=== PATIENT | male | born 1995 | race Asian ===

== ENCOUNTER 2018-09-25 22:32 | Emergency (ER) | payer OTHER, SELFPAY ==
[2018-09-25 22:39] VITALS: BP 127/77; PULSE 68; RESP 14; TEMP 37.2; O2SAT 100
--- NOTE | 2018-09-25 22:41 | DI.RAD.S_ITS ---
PROCEDURE: XR FOOT LT MIN 3V INDICATIONS: slip/fall, left lateral foot pain TECHNIQUE: 3 views of the foot were acquired. COMPARISON: None. FINDINGS: Bones: No fractures or dislocations. No suspicious bony lesions. Soft tissues: No tibiotalar joint effusion. Achilles tendon appears normal. IMPRESSION: Normal for age, source of current lateral pain symptoms is not seen. Dictated by: Reynaldo Mckeon M.D. on 09/26/2018 at 8:34 Approved by: Reynaldo Mckeon M.D. on 09/26/2018 at 8:35
--- NOTE | 2018-09-25 22:41 | DI.RAD.S_ITS ---
PROCEDURE: XR ELBOW LT MIN 3V INDICATIONS: slip/fall, left elbow pain TECHNIQUE: 3 views of the elbow were acquired. COMPARISON: None. FINDINGS: Bones: No fractures or dislocations. No suspicious bony lesions. Soft tissues: No elbow joint effusion. No suspicious soft tissue calcifications. IMPRESSION: Normal for age, source of current left elbow pain symptoms is not seen. Dictated by: Reynaldo Mckeon M.D. on 09/26/2018 at 8:34 Approved by: Reynaldo Mckeon M.D. on 09/26/2018 at 8:34
--- NOTE | 2018-09-25 23:22 | PC.NURSE ---
GLF, slipped on plastic lid, reports impacted lt hip, lt elbow, denies head/neck pain or tenderness, denies LOC, amb ind with steady gait, lt lateral foot pain, rolled it, no swelling/deformity or other visible sign of injurt to either ext, distal cms intact
--- NOTE | 2018-09-25 23:51 | ED_ITS ---
HPI - Extremity Injury (Lower) General Chief Complaint: Extremity Injury, Lower Stated Complaint: LEFT ARM AND ELBOW AND FOOT AND BACK INJURY Time Seen by Provider: 09/25/18 23:38 Source: patient Mode of arrival: ambulatory Limitations: no limitations History of Present Illness HPI Narrative: 22-year-old male here for evaluation of left ankle left hip left elbow pain. He states that earlier today he slipped on a plastic lid that was in the floor of his kitchen and landed on his left side. No loss of conscious. Denies any his head. He is ambulatory. Came in for evaluation of pain in these areas. No intervention for his symptoms prior to arrival Related Data Home Medications Medication Instructions Recorded Confirmed No Known Home Medications 09/25/18 09/25/18 Allergies Allergy/AdvReac Type Severity Reaction Status Date / Time No Known Drug Allergies Allergy Verified 09/25/18 22:40 Review of Systems Constitutional Denies frequent falls and Denies headache(s) ENT Ears, Nose, Mouth, and Throat: Denies vertigo, Denies dizziness and Denies headache(s) Cardiovascular Denies chest pain and Denies dyspnea Respiratory Denies dyspnea Gastrointestinal Gastrointestinal: Denies abdominal pain Musculoskeletal Comments: Left elbow left hip and left ankle pain Integumentary/Breasts Denies lesions and Denies rash Neurologic Denies vertigo, Denies dizziness, Denies frequent falls and Denies headache(s) Hematologic/Lymphatic Comments: Not on anticoagulation [facility] Medical History Healthy adult (Acute) Surgical History No pertinent past surgical history (Acute) Social History lives independently: Yes Exam Initial Vital Signs Initial Vital Signs: Vital Signs Temperature 99.0 F 09/25/18 22:39 Pulse Rate 68 09/25/18 22:39 Respiratory Rate 14 09/25/18 22:39 Blood Pressure 127/77 09/25/18 22:39 Pulse Oximetry 100 09/25/18 22:39 Const General: cooperative, healthy appearing, comfortable, well developed, well groomed and No acute distress Orientation: alert, awake and oriented x3 HENMT Head: normal to inspection and normocephalic Resp Effort & Inspection: normal respiratory effort Cardio Rate: regular rate Skin Lesions: no lesions Rashes: no rashes Neuro General: alert, awake and oriented x3 Cognition: normal cognition Speech: speech normal Gait: normal gait Extrem Other: Patient with tenderness to palpation over the olecranon of the left elbow. Full range of motion left elbow. Patient able to flex and extend. Able to pronate and supinate without any pain. Left shoulder unremarkable. Rest of his left upper extremities unremarkable. Patient does have tenderness palpation over the lateral aspect of his left hip. Was been ambulatory. Patient also with tenderness to palpation along the 5th metatarsal on the left. The rest of his left foot is unremarkable. Left ankle unremarkable. Psych Appearance: grossly normal and well kempt Course Orders Ordered: ED Orders 09/25/18 22:41 XR elbow LT min 3V Stat XR foot LT min 3V Stat Vital Signs - 8 hr 09/25/18 22:39 Temperature 99.0 F Pulse Rate 68 Respiratory Rate 14 Blood Pressure 127/77 Pulse Oximetry 100 MDM - Extremity Injury (Lower) Imaging Data X-ray left elbow: Attestation: I personally reviewed and interpreted this imaging study as follows: My impression: No fractures, no dislocations, no acute abnormalities X-ray left foot: Radiologist's impression: No fractures, no dislocations, no acute abnormalities MDM Narrative Medical decision making narrative: Patient is neurovascular intact. No fractures noted on the x-rays. Patient is ambulatory. Whole further workup for now. Patient was given return precautions. He expressed understanding and agreement Discharge Plan Departure Patient Disposition: Home Clinical Impression: Contusion of foot, left, Contusion of elbow, left, Contusion of hip, left, Fall Discharge Date/Time: 09/25/18 23:57 Interventions: ED Discharge Assessment Last Done: 09/25/18 23:57 Instructions: DI for Contusion Activity Restrictions/Additional Instructions: There were no fractures noted on the x-rays today. Recommend that you use anti- inflammatories and ice for any discomfort. Call your primary care doctor for follow-up. You have no restrictions on your activity. Return to the emergency department for any new symptoms Prescriptions: No Action No Known Home Medications RF: 0
== END 2018-09-25 23:57 | disposition home or self-care (01) ==
PROVIDERS: Emergency Provider Emergency Medicine
DX: S90.32XA Contusion of left foot, initial encounter (principal); S50.02XA Contusion of left elbow, initial encounter; S70.02XA Contusion of left hip, initial encounter; W01.0XXA Fall on same level from slipping, tripping and stumbling without subsequent striking against object, initial encounter
CPT/HCPCS: 73080; 73630; 99282; 99283

== ENCOUNTER 2022-11-06 17:50 | Emergency (ER) | payer OTHER, MEDICAID, SELFPAY ==
[2022-11-06] VITALS (10 sets, daily range): BP systolic 96–141; BP diastolic 55–82; PULSE 60–121; RESP 20; TEMP 37.4; O2SAT 95–99; BMI 23.0
--- NOTE | 2022-11-06 18:07 | ED.PSYCH ---
HPI - Psych <DO Rosa Ybarra Last Filed: 11/08/22 03:46> General Chief Complaint: Psychiatric Symptoms Stated Complaint: Mental health evaluation Time Seen by Provider: 11/06/22 18:03 History of Present Illness HPI Narrative: 26-year-old male nonsmoker with history of illicit drug use including at least fentanyl in the form of PERC 30s and previous incarcerations presents with a few friends concerned as he has been acting abnormal at least for today and yesterday. There is concerned that he has had undiagnosed mental health disease but he is never had a formal evaluation. The patient presents rambling with pressured speech, making mention of recently being let out of [facility] and having some interaction with a famous rapper, feeling that people were out to get him and did not understand where he was coming from. He denies any suicidal or homicidal ideation. He denies any auditory hallucinations but suggest that he may be having visual hallucinations. He denies any recent trauma or injury. He is had no runny nose, sore throat or cough and denies chest pain or shortness of breath. He denies nausea, vomiting or diarrhea. Related Data Home Medications Medication Instructions Recorded Confirmed No Known Home Medications 09/25/18 11/06/22 Allergies Allergy/AdvReac Type Severity Reaction Status Date / Time No Known Drug Allergies Allergy Verified 11/06/22 18:31 Review of Systems <DO Rosa Ybarra Last Filed: 11/08/22 03:46> Review of Systems Narrative: GENERAL: Denies chills, fatigue, malaise, fever, sweats. HEENT: Denies sinus pain, ear pain, sore throat, difficulty swallowing, dizziness. RESPIRATORY: Denies dyspnea, cough, wheezing, hemoptysis, sputum. CARDIOVASCULAR: Denies chest pain, palpitations, orthopnea, edema, GASTROINTESTINAL: Denies nausea, vomiting, abdominal pain, diarrhea, constipation, melena. : Denies dysuria, frequency, incontinence, hematuria, urinary retention. MUSCULOSKELETAL: denies weakness, joint pain, or bony pain SKIN: Denies rash, skin lesions, or other NEUROLOGIC: Denies weakness, headache, numbness, change in speech, confusion, seizures, incoordination. PSYCHIATRIC: See HPI 12 point review of systems is negative except for those stated above Patient History <DO Rosa Ybarra Last Filed: 11/08/22 03:46> Medical History Healthy adult Surgical History No pertinent past surgical history Social History lives independently: Yes Smoking Status: Unknown if ever smoked Exam <Sridhar Flores DO - Last Filed: 11/08/22 03:46> Narrative Exam Narrative: GENERAL: [26] year old patient appears stated age. Rapid, pressured and monotone speech, lack of insight, paranoid HEAD: Atraumatic. Normocephalic. EYES: Pupils equal round and reactive. Extraocular motions intact. No scleral icterus. No injection or drainage. ENT: Nose without bleeding, purulent drainage. Throat without erythema, tonsillar hypertrophy or exudate. Airway patent. NECK: Trachea midline. Non tender CARDIOVASCULAR: Tachycardic but regular rhythm without murmurs, gallops, or rubs. RESPIRATORY: Clear to auscultation. Breath sounds equal bilaterally. No wheezes, rales, or rhonchi. GASTROINTESTINAL: Abdomen soft, non-tender, nondistended. EXTREMITIES: No edema or joint tenderness. BACK: Nontender without deformity or crepitance. No flank tenderness. NEURO: AOx3. Cranial nerves 2-12 grossly intact SKIN: No rash or erythema of visible areas Initial Vital Signs Initial Vital Signs: Vital Signs Temperature 99.3 F 11/06/22 18:20 Pulse Rate 121 H 11/06/22 18:20 Respiratory Rate 20 11/06/22 18:20 Blood Pressure 141/82 H 11/06/22 18:20 Pulse Oximetry 98 11/06/22 18:20 Oxygen Delivery Method 11/06/22 18:20 <Millie Salazar DO - Last Filed: 11/07/22 19:47> Initial Vital Signs Initial Vital Signs: Vital Signs Temperature 99.3 F 11/06/22 18:20 Pulse Rate 121 H 11/06/22 18:20 Respiratory Rate 20 11/06/22 18:20 Blood Pressure 141/82 H 11/06/22 18:20 Pulse Oximetry 98 11/06/22 18:20 Oxygen Delivery Method 11/06/22 18:20 Course <DO Rosa Ybarra Last Filed: 11/08/22 03:46> Orders Ordered: Discontinued Medications Nicotine (Nicotine 21 Mg Patch) 21 mg TOP NOW ONE Stop: 11/06/22 21:47 Last Admin: 11/06/22 21:52 Dose: 21 mg Documented By: INOCENCIA Olanzapine (Olanzapine Odt 10 Mg Tab) 10 mg PO NOW ONE Stop: 11/06/22 20:21 Last Admin: 11/06/22 20:28 Dose: 10 mg Documented By: INOCENCIA Vital Signs Vital signs: Vital Signs - 8 hr 11/07/22 12:45 Pulse Rate 97 H Blood Pressure 136/78 Pulse Oximetry 98 Oxygen Delivery Method Room Air <Millie Salazar DO - Last Filed: 11/07/22 19:47> Orders Ordered: Discontinued Medications Nicotine (Nicotine 21 Mg Patch) 21 mg TOP NOW ONE Stop: 11/06/22 21:47 Last Admin: 11/06/22 21:52 Dose: 21 mg Documented By: INOCENCIA Olanzapine (Olanzapine Odt 10 Mg Tab) 10 mg PO NOW ONE Stop: 11/06/22 20:21 Last Admin: 11/06/22 20:28 Dose: 10 mg Documented By: INOCENCIA Vital Signs Vital signs: Vital Signs - 8 hr 11/07/22 12:45 Pulse Rate 97 H Blood Pressure 136/78 Pulse Oximetry 98 Oxygen Delivery Method Room Air MDM - Psych <Sridhar Flores DO - Last Filed: 11/08/22 03:46> Lab Data 11/06/22 18:25 11/06/22 18:25 Labs: Lab Results 11/06/22 11/06/22 11/06/22 Range/Units 18:20 18:25 18:25 WBC 9.8 (4.5-11.0) X10^3/uL RBC 4.75 (4.5-5.9) X10^6/uL Hgb 15.5 (13.5-17.5) g/dL Hct 45.2 (41-53) % MCV 95.0 (80-100) fL MCH 32.6 (26-34) PG MCHC 34.3 (30-36) % RDW 12.6 (11.6-14.8) % Plt Count 210 (150-400) X10^3/uL Neut % (Auto) 84.0 H (50-75) % Lymph % (Auto) 9.3 L (25-40) % [place] % (Auto) 6.4 (3-14) % Eos % (Auto) 0.0 L (2-4) % Baso % (Auto) 0.3 (0-2) % Neut # (Auto) 8200 H (5807-4705) /uL Lymph # (Auto) 900 L (0547-6821) /uL [place] # (Auto) 600 (0-900) /uL Eos # (Auto) 0 (0-450) /uL Baso # (Auto) 0 (0-100) /uL Sodium 141 (137-145) mmol/L Potassium 3.9 (3.4-5.1) mmol/L Chloride 99 (98-107) mmol/L Carbon Dioxide 29 (22-32) mmol/L BUN 8 L (9-20) mg/dL Creatinine 0.83 (0.66-1.25) mg/dL Estimated GFR > 60 (>60) mL/min BUN/Creatinine Ratio 9.6 (6-22) Glucose 128 H (70-100) mg/dL Calcium 9.3 (8.4-10.2) mg/dL Total Bilirubin 0.6 (0.2-1.3) mg/dL AST 36 (17-59) IU/L ALT 25 (<50) IU/L Alkaline Phosphatase 90 (38-126) U/L Total Protein 8.8 H (6.3-8.2) g/dL Albumin 5.2 H (3.5-5.0) g/dL Globulin 3.6 (1.7-4.1) g/dL Albumin/Globulin Ratio 1.4 (1.0-2.8) TSH (0.47-4.68) uIU/mL Free T4 (0.78-2.19) ng/dL Salicylates < 1.0 (<20) mg/dL U Opiates 300ng/mL cut Negative (Negative) Ur Oxycodone Screen Negative (Negative) Urine Methadone Screen Negative (Negative) Acetaminophen < 10 (10-30) ug/mL Ur Barbiturates Screen Negative (Negative) U Tricyclic Antidepress Negative (Negative) Ur Phencyclidine Scrn Negative (Negative) Ur Amphetamines Screen Negative (Negative) U Methamphetamines Scrn Negative (Negative) Ur MDMA Scrn (Ecstasy) Negative (Negative) U Benzodiazepines Scrn Negative (Negative) Urine Cocaine Screen Negative (Negative) U Marijuana (THC) Screen Negative (Negative) Ethyl Alcohol < 10 ( - 10) mg/dL SARS-CoV-2 (PCR) (Negative) 11/06/22 11/06/22 Range/Units 18:25 20:40 WBC (4.5-11.0) X10^3/uL RBC (4.5-5.9) X10^6/uL Hgb (13.5-17.5) g/dL Hct (41-53) % MCV (80-100) fL MCH (26-34) PG MCHC (30-36) % RDW (11.6-14.8) % Plt Count (150-400) X10^3/uL Neut % (Auto) (50-75) % Lymph % (Auto) (25-40) % [place] % (Auto) (3-14) % Eos % (Auto) (2-4) % Baso % (Auto) (0-2) % Neut # (Auto) (1688-2882) /uL Lymph # (Auto) (1043-5505) /uL [place] # (Auto) (0-900) /uL Eos # (Auto) (0-450) /uL Baso # (Auto) (0-100) /uL Sodium (137-145) mmol/L Potassium (3.4-5.1) mmol/L Chloride (98-107) mmol/L Carbon Dioxide (22-32) mmol/L BUN (9-20) mg/dL Creatinine (0.66-1.25) mg/dL Estimated GFR (>60) mL/min BUN/Creatinine Ratio (6-22) Glucose (70-100) mg/dL Calcium (8.4-10.2) mg/dL Total Bilirubin (0.2-1.3) mg/dL AST (17-59) IU/L ALT (<50) IU/L Alkaline Phosphatase (38-126) U/L Total Protein (6.3-8.2) g/dL Albumin (3.5-5.0) g/dL Globulin (1.7-4.1) g/dL Albumin/Globulin Ratio (1.0-2.8) TSH 0.912 (0.47-4.68) uIU/mL Free T4 1.12 (0.78-2.19) ng/dL Salicylates (<20) mg/dL U Opiates 300ng/mL cut (Negative) Ur Oxycodone Screen (Negative) Urine Methadone Screen (Negative) Acetaminophen (10-30) ug/mL Ur Barbiturates Screen (Negative) U Tricyclic Antidepress (Negative) Ur Phencyclidine Scrn (Negative) Ur Amphetamines Screen (Negative) U Methamphetamines Scrn (Negative) Ur MDMA Scrn (Ecstasy) (Negative) U Benzodiazepines Scrn (Negative) Urine Cocaine Screen (Negative) U Marijuana (THC) Screen (Negative) Ethyl Alcohol ( - 10) mg/dL SARS-CoV-2 (PCR) Negative (Negative) Urine Dip Bedside Urine Glucose Negative Bedside Urine Bilirubin - Negative Bedside Urine Ketone - Negative Urine Specific [place] 1.010 Bedside Urine Occult Blood - Negative Bedside Urine pH 7.5 Bedside Urine Protein - Negative Bedside Urine Urobilinogen - Negative Bedside Urine Nitrite - Negative Bedside Urine Leukocytes - Negative Esterase MDM Narrative Medical decision making narrative: 26-year-old male with pressured speech, flight of ideas, paranoid and delusional thoughts, likely visual hallucinations presents requesting help, in the presence of 2 friends. He denies any suicidal or homicidal ideations. He is never had mental health evaluation, never received any diagnoses, treatments or therapies. Likely has been using illegal substances who self medicate is medically cleared and appropriate for evaluation by [facility] <Millie Salazar, DO - Last Filed: 11/07/22 19:47> Lab Data Labs: Lab Results 11/06/22 11/06/22 11/06/22 Range/Units 18:20 18:25 18:25 WBC 9.8 (4.5-11.0) X10^3/uL RBC 4.75 (4.5-5.9) X10^6/uL Hgb 15.5 (13.5-17.5) g/dL Hct 45.2 (41-53) % MCV 95.0 (80-100) fL MCH 32.6 (26-34) PG MCHC 34.3 (30-36) % RDW 12.6 (11.6-14.8) % Plt Count 210 (150-400) X10^3/uL Neut % (Auto) 84.0 H (50-75) % Lymph % (Auto) 9.3 L (25-40) % [place] % (Auto) 6.4 (3-14) % Eos % (Auto) 0.0 L (2-4) % Baso % (Auto) 0.3 (0-2) % Neut # (Auto) 8200 H (1600-8320) /uL Lymph # (Auto) 900 L (6735-3857) /uL [place] # (Auto) 600 (0-900) /uL Eos # (Auto) 0 (0-450) /uL Baso # (Auto) 0 (0-100) /uL Sodium 141 (137-145) mmol/L Potassium 3.9 (3.4-5.1) mmol/L Chloride 99 (98-107) mmol/L Carbon Dioxide 29 (22-32) mmol/L BUN 8 L (9-20) mg/dL Creatinine 0.83 (0.66-1.25) mg/dL Estimated GFR > 60 (>60) mL/min BUN/Creatinine Ratio 9.6 (6-22) Glucose 128 H (70-100) mg/dL Calcium 9.3 (8.4-10.2) mg/dL Total Bilirubin 0.6 (0.2-1.3) mg/dL AST 36 (17-59) IU/L ALT 25 (<50) IU/L Alkaline Phosphatase 90 (38-126) U/L Total Protein 8.8 H (6.3-8.2) g/dL Albumin 5.2 H (3.5-5.0) g/dL Globulin 3.6 (1.7-4.1) g/dL Albumin/Globulin Ratio 1.4 (1.0-2.8) TSH (0.47-4.68) uIU/mL Free T4 (0.78-2.19) ng/dL Salicylates < 1.0 (<20) mg/dL U Opiates 300ng/mL cut Negative (Negative) Ur Oxycodone Screen Negative (Negative) Urine Methadone Screen Negative (Negative) Acetaminophen < 10 (10-30) ug/mL Ur Barbiturates Screen Negative (Negative) U Tricyclic Antidepress Negative (Negative) Ur Phencyclidine Scrn Negative (Negative) Ur Amphetamines Screen Negative (Negative) U Methamphetamines Scrn Negative (Negative) Ur MDMA Scrn (Ecstasy) Negative (Negative) U Benzodiazepines Scrn Negative (Negative) Urine Cocaine Screen Negative (Negative) U Marijuana (THC) Screen Negative (Negative) Ethyl Alcohol < 10 ( - 10) mg/dL SARS-CoV-2 (PCR) (Negative) 11/06/22 11/06/22 Range/Units 18:25 20:40 WBC (4.5-11.0) X10^3/uL RBC (4.5-5.9) X10^6/uL Hgb (13.5-17.5) g/dL Hct (41-53) % MCV (80-100) fL MCH (26-34) PG MCHC (30-36) % RDW (11.6-14.8) % Plt Count (150-400) X10^3/uL Neut % (Auto) (50-75) % Lymph % (Auto) (25-40) % [place] % (Auto) (3-14) % Eos % (Auto) (2-4) % Baso % (Auto) (0-2) % Neut # (Auto) (2199-6469) /uL Lymph # (Auto) (0895-3320) /uL [place] # (Auto) (0-900) /uL Eos # (Auto) (0-450) /uL Baso # (Auto) (0-100) /uL Sodium (137-145) mmol/L Potassium (3.4-5.1) mmol/L Chloride (98-107) mmol/L Carbon Dioxide (22-32) mmol/L BUN (9-20) mg/dL Creatinine (0.66-1.25) mg/dL Estimated GFR (>60) mL/min BUN/Creatinine Ratio (6-22) Glucose (70-100) mg/dL Calcium (8.4-10.2) mg/dL Total Bilirubin (0.2-1.3) mg/dL AST (17-59) IU/L ALT (<50) IU/L Alkaline Phosphatase (38-126) U/L Total Protein (6.3-8.2) g/dL Albumin (3.5-5.0) g/dL Globulin (1.7-4.1) g/dL Albumin/Globulin Ratio (1.0-2.8) TSH 0.912 (0.47-4.68) uIU/mL Free T4 1.12 (0.78-2.19) ng/dL Salicylates (<20) mg/dL U Opiates 300ng/mL cut (Negative) Ur Oxycodone Screen (Negative) Urine Methadone Screen (Negative) Acetaminophen (10-30) ug/mL Ur Barbiturates Screen (Negative) U Tricyclic Antidepress (Negative) Ur Phencyclidine Scrn (Negative) Ur Amphetamines Screen (Negative) U Methamphetamines Scrn (Negative) Ur MDMA Scrn (Ecstasy) (Negative) U Benzodiazepines Scrn (Negative) Urine Cocaine Screen (Negative) U Marijuana (THC) Screen (Negative) Ethyl Alcohol ( - 10) mg/dL SARS-CoV-2 (PCR) Negative (Negative) Urine Dip Bedside Urine Glucose Negative Bedside Urine Bilirubin - Negative Bedside Urine Ketone - Negative Urine Specific [place] 1.010 Bedside Urine Occult Blood - Negative Bedside Urine pH 7.5 Bedside Urine Protein - Negative Bedside Urine Urobilinogen - Negative Bedside Urine Nitrite - Negative Bedside Urine Leukocytes - Negative Esterase MDM Narrative Medical decision making narrative: 26-year-old male with pressured speech, flight of ideas, paranoid and delusional thoughts, likely visual hallucinations presents requesting help, in the presence of 2 friends. He denies any suicidal or homicidal ideations. He is never had mental health evaluation, never received any diagnoses, treatments or therapies. Likely has been using illegal substances to self medicate is medically cleared and appropriate for evaluation by [facility]. Martin 11/07/22: Patient signed out to myself by Dr. Flores. Patient seen independently evaluated by myself. He is calm, appropriate his mentation appears clear he does admit to auditory hallucinations he states sometimes voices sometimes other things. He states it sometimes his hallucination scare him but states that there is no clear threats from the hallucinations, he states that he does not hear voices telling him to harm himself or others. He denies any SI or homicidal ideation or intent. Patient does describe paranoid thoughts, he describes sometimes flight of ideas, he describes a general feeling of lack of safety when he is at home. He states that he quit using drugs which was typically narcotics such as fentanyl about 2 or 3 months ago. States he was drinking frequently until about 2 or 3 months ago and states he has not had any recreational substances or alcohol in the last 2 or 3 months. Spoke with social work they sent patient's information to walk come triage inpatient has been accepted to be evaluated for possible outpatient services versus voluntary placement. Patient is amenable to this plan. We discussed he has a strong feeling versus outpatient or voluntary he does not meet criteria for COURT[facility] at this time. Patient prefers outpatient and would like to go this route through [facility]. Patient plan is for discharge from emergency department and their preferences that he arrived via private auto to the facility they will evaluate him and proceed from there. Transportation was arranged. Patient discharged with plan to go straight to the facility. Discharge Plan Departure Patient Disposition: Home Clinical Impression: Auditory hallucination Activity Restrictions/Additional Instructions: If you're feeling suicidal or having suicidal thoughts, contact the suicide hotline (this is also hotline for counseling and resources self-referral) . Go directly to the facility for evaluation, they will meet with you for evaluation about outpatient services, evaluation and treatment versus placement. Please return or go to the nearest emergency room or call 911 if you are having thoughts of harming herself or others, worsening hallucinations, or if you feel unsafe at any time. Prescriptions: No Action No Known Home Medications Stand Alone Forms: Patient Portal/API
[2022-11-06 18:33] LABS: UR Morphine/Opiate cutoff 300 Negative (Negative); Ur Creatinine Normal (Normal); Ur Specific Gravity Normal (Normal); Urine Amphetamines Negative (Negative); Urine Barbiturates Negative (Negative); Urine Benzodiazepines Negative (Negative); Urine Cocaine Negative (Negative); Urine MDMA Negative (Negative); Urine Methadone Negative (Negative); Urine Methamphetamines Negative (Negative); Urine Oxycodone Negative (Negative); Urine Phencyclidine Negative (Negative); Urine Tetrahydrocannabinol Negative (Negative); Urine Tricyclic Antidepressant Negative (Negative); Urine pH Normal (Normal)
[2022-11-06 18:47] LABS: Add Manual Diff / Slide Review NO; Basophils Absolute Auto 0 /uL (0-100); Basophils Percent Auto 0.3 % (0-2); Eosinophils Absolute Auto 0 /uL (0-450); Hematocrit 45.2 % (41-53); Hemoglobin 15.5 g/dL (13.5-17.5); Lymphocytes Absolute Auto 900 /uL (1100-4500); Lymphocytes Percent Auto 9.3 % (25-40); Mean Corpuscular HGB Conc 34.3 % (30-36); Mean Corpuscular Hemoglobin 32.6 PG (26-34); Monocytes Absolute Auto 600 /uL (0-900); Monocytes Percent Auto 6.4 % (3-14); Neutrophils Absolute Auto 8200 /uL (1500-7000); Platelet Count 210 X10^3/uL (150-400); Red Blood Cell Count 4.75 X10^6/uL (4.5-5.9); Red Cell Distribution Width 12.6 % (11.6-14.8); White Blood Cell Count 9.8 X10^3/uL (4.5-11.0)
--- NOTE | 2022-11-06 18:47 | DI.CT.S_ITS ---
PROCEDURE: CT HEAD/BRAIN WO CON INDICATIONS: altered mental status TECHNIQUE: Noncontrast 4.5 mm thick angled axial sections acquired from the foramen magnum to the vertex, with coronal and sagittal reformats. For radiation dose reduction, the following was used: automated exposure control, adjustment of mA and/or kV according to patient size. COMPARISON: None. FINDINGS: Image quality: Excellent. CSF spaces: Basal cisterns are patent. No extra-axial fluid collections. Ventricles are normal in size and shape. Brain: No midline shift. No intracranial masses or hemorrhage. [place]-white matter interface is normal. Skull and face: Calvarium and visualized facial bones are intact, without suspicious lesions. Sinuses: Visualized sinuses and mastoids are clear. IMPRESSION: Normal CT brain Approved by: Jose Lazo M.D. on 11/06/2022 at 18:18
[2022-11-06 18:54] LABS: Acetaminophen < 10 ug/mL (10-30); Alanine Aminotransferase 25 IU/L (<50); Albumin 5.2 g/dL (3.5-5.0); Albumin Globulin Ratio 1.4 (1.0-2.8); Alkaline Phosphatase 90 U/L (38-126); Aspartate Aminotransferase 36 IU/L (17-59); BUN Creatinine Ratio 9.6 (6-22); Bilirubin Total 0.6 mg/dL (0.2-1.3); Blood Urea Nitrogen 8 mg/dL (9-20); Calcium 9.3 mg/dL (8.4-10.2); Carbon Dioxide 29 mmol/L (22-32); Chloride 99 mmol/L (98-107); Estimated Glomerular Filt Rate > 60 mL/min (>60); Ethanol (ETOH) < 10 mg/dL; Globulin 3.6 g/dL (1.7-4.1); Glucose 128 mg/dL (70-100); HEMOLYSIS < 15 (0-50); Potassium 3.9 mmol/L (3.4-5.1); Salicylate < 1.0 mg/dL (<20); Sodium 141 mmol/L (137-145); Total Protein 8.8 g/dL (6.3-8.2)
[2022-11-06 19:21] LABS: Free T4, Direct Thyroxine 1.12 ng/dL (0.78-2.19)
[2022-11-06 19:35] LABS: Thyroid Stimulating Hormone 0.912 uIU/mL (0.47-4.68)
[2022-11-06] MEDS: OLANZapine ODT 10 MG TAB PO (20:28)
[2022-11-06 21:03] LABS: COVID19 -Nasal RAPID Negative (Negative)
[2022-11-06] MEDS: NICOTINE 21 MG PATCH TOP (21:52)
[2022-11-07] VITALS (22 sets, daily range): BP systolic 85–136; BP diastolic 48–78; PULSE 48–97; O2SAT 96–100
--- NOTE | 2022-11-07 10:54 | CM.SWNOTE ---
Patient is a 26 year old male who was admitted to [facility] on 11/06/25 for mental health evaluation. Pt has [employer] for insurance and PCP unknown. EMR was reviewed. Per ED MD, pt brought in by friends concerned about pt's behaviors and pt denying S.I. or H.I. but seems to be reacting to visual stimuli and pressured speech with grandiose thoughts. Pt has been calm and cooperative and voluntarily requesting mental health supports. Pt's Tox screen negative although pt does have a hx of drug abuse and incarceration but non-violent. Pt denies any hx of mental health services, outpt or inpt but agreeable with MH resources. Pt has very supportive friends that are involved and they express concerns with pt's family understanding of pt's mental health needs and seem to feel that police should be called rather than seeking ED or support first. Pt does not appear acute for Inpt MH tx at this time as denies S.I. and H.I. and calm and cooperative and does not appear to be fully gravely disabled. [facility] called [facility] in [place] and they are currently full. [facility]G called [facility] and they have beds and provided pt information and screening and faxed clinicals to review and received a call back from [facility] and he confirms they can accept pt if someone could give him a ride. SUNG updated ED MD and RN and they will kindly call pt's friend that they have been providing updates to today to confirm a friend can transport pt to [facility] towards further eval and assessment to determine if pt would meet criteria for Inpt MH tx vs enrolling in outpt MH supports. ROSALIE Perez
== END 2022-11-07 12:51 | disposition home or self-care (01) ==
PROVIDERS: Emergency Medicine; Emergency Provider Emergency Medicine
DX: R44.0 Auditory hallucinations (principal); Z20.822 Contact with and (suspected) exposure to COVID-19
CPT/HCPCS: 36415; 70450; 80053; 80305; 80320; 80329; 81003; 84439; 84443; 85025; 87635; 99284; C9803; G0480